=== PATIENT | female | born 1985 | race Caucasian/White ===

== ENCOUNTER 2019-10-08 07:51 | Day surgery (SDC) | payer OTHER ==
[~2019-10-08] VITALS: Ht 162.6 cm; Wt 89.9 kg
[2019-10-08] MEDS ORDERED: LACTATED RINGERS 1,000 ML IV SCH (08:14)
[2019-10-08 08:24] VITALS: BP 136/89
[2019-10-08] MEDS ORDERED: DIAZEPAM 5 MG TABLET PO ONE (08:30)
[2019-10-08] MEDS ORDERED: SCOPOLAMINE 1MG PATCH TD SCH (08:30)
[2019-10-08] MEDS ORDERED: ACETAMINOPHEN 500 MG TABLET PO ONE (08:30)
[2019-10-08] MEDS ORDERED: PLEASE ENTER HEIGHT AND WEIGHT MC SCH (08:30)
[2019-10-08] MEDS ORDERED: LIDOCAINE-MPF 1%, 2ML INFIL ONE (08:30)
[2019-10-08] MEDS ORDERED: FENTANYL PF 250 MCG/5ML ONE ×3 (08:44→11:42)
[2019-10-08] MEDS ORDERED: MIDAZOLAM 1 MG/ML, 2ML ONE (08:44)
[2019-10-08] MEDS ORDERED: CALCIUM PO (08:57)
[2019-10-08] MEDS ORDERED: MAGNESIUM PO (08:57)
[2019-10-08] MEDS ORDERED: MULT-658 PO (08:57)
[2019-10-08] MEDS ORDERED: IBUP-1223 PO (08:57)
[2019-10-08] MEDS ORDERED: PREDNISONE PO (08:57)
[2019-10-08] MEDS ORDERED: HYDR-3237 PO (08:57)
[2019-10-08] MEDS ORDERED: CYCL-259 PO (08:57)
[2019-10-08] MEDS ORDERED: NEOSTIGMINE 1 MG/ML, 10ML ONE (09:08)
[2019-10-08] MEDS ORDERED: PROPOFOL 10 MG/ML, 20ML ONE (09:08)
[2019-10-08] MEDS ORDERED: PROPOFOL 100 ML ONE (09:08)
[2019-10-08] MEDS ORDERED: DEXAMETHASONE 4 MG/ML, 1ML ONE (09:08)
[2019-10-08] MEDS ORDERED: SUCCINYLCHOLINE 20 MG/ML, 10ML ONE (09:08)
[2019-10-08] MEDS ORDERED: ROCURONIUM 10MG/ML,5ML ONE (09:08)
[2019-10-08] MEDS ORDERED: GLYCOPYRROLATE 0.2MG/1ML, 5ML ONE (09:08)
[2019-10-08] MEDS ORDERED: ONDANSETRON 2MG/ML, 2ML ONE (09:08)
[2019-10-08] MEDS ORDERED: CEFAZOLIN 1,000 MG ONE (09:08)
[2019-10-08] MEDS ORDERED: THROMBIN 20,000 UNIT VIAL TP ONE (10:06)
[2019-10-08] MEDS ORDERED: BUPIVACAINE/PF-EPI 0.5% 1:200K ONE ×2 (10:06→12:38)
[2019-10-08] MEDS ORDERED: BACITRACIN 50,000 UNIT ONE ×2 (10:06→12:39)
[2019-10-08] MEDS ORDERED: BACITRACIN OINT 500U/GM, 15 GM ONE (10:11)
[2019-10-08] MEDS ORDERED: OXYcodone 5 MG/5 ML ORAL.SOL UDC PO PRN (11:00)
[2019-10-08] MEDS ORDERED: HYDROmorphone 2 MG/ML, 1ML IVPush PRN (11:00)
[2019-10-08] MEDS ORDERED: PROMETHAZINE 25 MG SUPP PR PRN (11:00)
[2019-10-08] MEDS ORDERED: FENTANYL PF 100 MCG/2ML IV PRN (11:00)
[2019-10-08] MEDS ORDERED: PROMETHAZINE 25 MG/ML, 1ML IV PRN (11:00)
[2019-10-08] MEDS ORDERED: ONDANSETRON 2MG/ML, 2ML IV PRN (11:00)
[2019-10-08] MEDS ORDERED: MEPERIDINE/PF 25MG/ML,1ML IVPush PRN (11:00)
[2019-10-08] MEDS ORDERED: LORazepam 2 MG/ML, 1ML IVPush PRN (11:00)
[2019-10-08] MEDS ORDERED: METHOCARBAMOL 1000MG/10 ML IV PRN (11:00)
[2019-10-08] MEDS ORDERED: ONDANSETRON ODT 8 MG PO PRN (11:00)
[2019-10-08] MEDS ORDERED: FENTANYL PF 100 MCG/2ML ONE (12:40)
[2019-10-08] MEDS ORDERED: HYDROmorphone 1 MG/ML, 1ML INJ ONE (12:41)
[2019-10-08] MEDS ORDERED: OXYcodone 5 MG/5 ML ORAL.SOL UDC ONE (12:41)
[2019-10-08] MEDS ORDERED: METHOCARBAMOL 1,000 MG in DEXTROSE 5% 100 ML IV PRN (13:00)
[2019-10-08] MEDS ORDERED: MEPERIDINE/PF 25MG/ML,1ML ONE (13:05)
== END 2019-10-08 16:00 | disposition home or self-care (01) ==
LOC: OUT 07:51
PROVIDERS: ATTEND Neurological Surgery
DX: M48.07 Spinal stenosis, lumbosacral region (principal); M51.16 Intervertebral disc disorders with radiculopathy, lumbar region; M51.27 Other intervertebral disc displacement, lumbosacral region; Z79.899 Other long term (current) drug therapy; Z72.89 Other problems related to lifestyle; Z98.890 Other specified postprocedural states; Z83.3 Family history of diabetes mellitus; Z87.891 Personal history of nicotine dependence; Z82.3 Family history of stroke
CPT/HCPCS: 63030; 72100; 95938; 95941; J0330; J0690; J1100; J2175; J2250; J2405; J2704; J2710; J3010; J7120